=== PATIENT | male | born 2000 | race American Indian/Alaskan Native ===

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

== ENCOUNTER 2022-08-05 11:26 | Emergency (ER) | payer MEDICAID, OTHER ==
[2022-08-05] MEDS: Doxycycline Monohydrate 100 MG Cap PO ONE (11:50)
[2022-08-05] MEDS: cefTRIAXone 1 GM, Lidocaine 1% 2.1 ML IM ONE ×2 (11:50)
[2022-08-08 07:46] LABS: C.TRACHOMATIS BY TMA Negative (Negative); N.GONORRHOEAE BY TMA Positive (Negative)
== END 2022-08-05 12:06 | disposition home or self-care (01) ==
LOC: DL.ED 11:26
DX: A64 Unspecified sexually transmitted disease (principal); N34.2 Other urethritis; J45.909 Unspecified asthma, uncomplicated; Z88.0 Allergy status to penicillin
CPT/HCPCS: 36415; 81001; 87086; 87491; 87563; 87591; 96372; 99283; A9270; J0696

== ENCOUNTER 2022-09-12 11:01 | Emergency (ER) | payer MEDICAID ==
[2022-09-12] MEDS ORDERED: Ketorolac 30 MG/ML SDV IM ONE (12:48)
== END 2022-09-12 13:29 | disposition home or self-care (01) ==
LOC: DL.ED 11:01
DX: M26.622 Arthralgia of left temporomandibular joint (principal); J45.909 Unspecified asthma, uncomplicated; Z88.0 Allergy status to penicillin
CPT/HCPCS: 36415; 70486; 85025; 86140; 96372; 99284; J1885

== ENCOUNTER 2022-10-15 10:51 | Emergency (ER) | payer MEDICAID | END 2022-10-15 12:03 | disposition home or self-care (01) | LOC: DL.ED 10:51 | DX: M71.562 Other bursitis, not elsewhere classified, left knee (principal); M25.462 Effusion, left knee; Z88.0 Allergy status to penicillin | CPT/HCPCS: 36415; 85025; 86140; 99283 ==